=== PATIENT | male | born 1985 | race Caucasian/White ===

== ENCOUNTER 2019-03-10 13:11 | Emergency (ER) | payer OTHER ==
[~2019-03-10] VITALS: Ht 172.7 cm; Wt 68.2 kg
[2019-03-10] MEDS ORDERED: CLON2 PO (13:28)
[2019-03-10 16:35] VITALS: BP 116/71
== END 2019-03-10 16:43 | disposition home or self-care (01) ==
LOC: EMS 13:13
DX: F10.20 Alcohol dependence, uncomplicated (principal); F41.9 Anxiety disorder, unspecified; F13.90 Sedative, hypnotic, or anxiolytic use, unspecified, uncomplicated; F17.210 Nicotine dependence, cigarettes, uncomplicated; Z88.0 Allergy status to penicillin; Z88.2 Allergy status to sulfonamides

== ENCOUNTER 2019-03-13 10:27 | Emergency (ER) | payer OTHER ==
[~2019-03-13] VITALS: Ht 172.7 cm; Wt 70.5 kg
[~2019-03-13 10:27] MED LIST: CLON2 PO
[2019-03-13] MEDS ORDERED: LIB5 PO (10:37)
[2019-03-13 14:39] VITALS: BP 121/77
== END 2019-03-13 14:46 | disposition home or self-care (01) ==
LOC: EMS 10:28
DX: F41.9 Anxiety disorder, unspecified (principal); F14.10 Cocaine abuse, uncomplicated; F17.210 Nicotine dependence, cigarettes, uncomplicated; F13.10 Sedative, hypnotic or anxiolytic abuse, uncomplicated; Z88.0 Allergy status to penicillin; Z88.2 Allergy status to sulfonamides

== ENCOUNTER 2019-07-12 10:04 | Emergency (ER) | payer SELFPAY ==
[~2019-07-12] VITALS: Ht 170.2 cm; Wt 63.6 kg
[~2019-07-12 10:04] MED LIST changes: -CLON2 PO; +LIB5 PO
[2019-07-12] MEDS ORDERED: CLON2 PO (10:45)
[2019-07-12] MEDS ORDERED: BUPR1FIL7 SL (10:45)
[2019-07-12] MEDS ORDERED: ClonazePAM 1 MG TABLET PO ONE (12:15)
[2019-07-12 12:29] LABS: AMPHET/METH SCREEN,URINE NEGATIVE (NEGATIVE); BARBITURATE SCREEN, URINE NEGATIVE (NEGATIVE); BENZODIAZEPINES SCREEN,URINE NEGATIVE (NEGATIVE); CANNABINOID SCREEN,URINE POSITIVE (NEGATIVE); COCAINE SCREEN,URINE NEGATIVE (NEGATIVE); METHADONE SCREEN, URINE NEGATIVE (NEGATIVE); OPIATE SCREEN,URINE NEGATIVE (NEGATIVE)
[2019-07-12 12:30] LABS: PHENCYCLIDINE SCREEN,URINE NEGATIVE (NEGATIVE)
[2019-07-12 14:43] VITALS: BP 128/67
== END 2019-07-12 14:49 | disposition home or self-care (01) ==
LOC: EMS 10:06
DX: F41.9 Anxiety disorder, unspecified (principal); R32 Unspecified urinary incontinence; F17.210 Nicotine dependence, cigarettes, uncomplicated; F31.9 Bipolar disorder, unspecified; F13.10 Sedative, hypnotic or anxiolytic abuse, uncomplicated; Z76.0 Encounter for issue of repeat prescription; Z88.0 Allergy status to penicillin; Z88.1 Allergy status to other antibiotic agents
CPT/HCPCS: 99406